=== PATIENT | male | born 1995 | race African-American/Black ===

== ENCOUNTER 2018-08-03 10:25 | Emergency (ER) | payer SELFPAY ==
[~2018-08-03] VITALS: Ht 177.8 cm; Wt 69.4 kg
--- OUTSIDE RECORDS SUMMARY | 2018-08-03 10:27 | XMS REPORT | Clinical Summary ---
Author Author [facility] Address Unknown Phone Unavailable Care Team Providers Care Fibrous Plasterer Name Role Phone Sharpless PCP Allergies No Known Allergies Medications No known medications Active Problems Not on file Social History Date Tobacco Use Types Packs/Day Years Used Never Smoker Smokeless Tobacco: Never Used Alcohol Use Drinks/Week oz/Week Comments Yes Sex Assigned at Date Recorded Not on file Industry Job Start Date Occupation Not on file Not on file Not on file Travel End Travel History Travel Start No recent travel history available. Last Filed Vital Signs Not on file Plan of Treatment Not on file Results Not on fileafter 08/02/2017
--- OUTSIDE RECORDS SUMMARY | 2018-08-03 10:27 | XMS REPORT ---
Author Author [facility] Address Unknown Phone Unavailable Care Team Providers Care Skein Dyer Name Role Phone JUDD RIDDLE Unavailable Unavailable Problems This patient has no known problems. Allergies, Adverse Reactions, Alerts This patient has no known allergies or adverse reactions. Medications This patient has no known medications. Encounters Start Date/Time End Date/Time Encounter Type Admission Type Attending Clinicians Care Facility Care Department Encounter ID 2017-06-12 17:58:00 2017-06-12 17:58:00 Emergency [facility] [id number] Results Test Description Test Time Test Comments Text Results Atomic Results Result Comments BASIC METABOLIC PANEL 2017-06-13 00:36:00 SODIUM (BEAKER) (test fmlw=490) 144 meq/L 135-148 POTASSIUM (BEAKER) (test bopw=523) 3.8 meq/L 3.6-5.5 CHLORIDE (BEAKER) (test jqib=037) 99 meq/L 98-106 CO2 (BEAKER) (test bhft=793) 32 meq/L 24-32 BLOOD UREA NITROGEN (BEAKER) (test broh=449) 17 mg/dL 10-26 CREATININE (BEAKER) (test diyw=372) 1.00 mg/dL 0.50-1.20 GLUCOSE RANDOM (BEAKER) (test nwvp=454) 96 mg/dL 70-110 CALCIUM (BEAKER) (test znzs=729) 9.4 mg/dL 8.5-10.5 EGFR (BEAKER) (test jpov=4272) 111 mL/min/1.73 sq m ESTIMATED GFR IS NOT ACCURATE CREATININE CLEARANCE IN PREDICTING GLOMERULAR FILTRATION RATE. ESTIMATED GFR IS NOT APPLICABLE FOR DIALYSIS PATIENTS. CBC W/PLT COUNT & AUTO [id number] 00:29:00* Test Item Value Reference Range Comments WHITE BLOOD CELL COUNT (BEAKER) (test rmho=162) 6.2 10e3/ L 4.0-10.0 RED BLOOD CELL COUNT (BEAKER) (test enca=048) 5.00 10e6/ L 4.20-5.80 HEMOGLOBIN (BEAKER) (test xpdl=740) 14.5 g/dL 13.0-16.8 HEMATOCRIT (BEAKER) (test timm=047) 42.5 % 40.0-50.0 MEAN CORPUSCULAR VOLUME (BEAKER) (test dcnl=196) 84.9 fL 82.0-98.0 MEAN CORPUSCULAR HEMOGLOBIN (BEAKER) (test uuiu=116) 29.0 pg 27.0-33.0 MEAN CORPUSCULAR HEMOGLOBIN CONC (BEAKER) (test vuab=418) 34.2 g/dL 32.0-36.0 RED CELL DISTRIBUTION WIDTH (BEAKER) (test auij=136) 12.5 % 10.3-14.2 PLATELET COUNT (BEAKER) (test tcxl=885) 205 10e3/ L 150-430 MEAN PLATELET VOLUME (BEAKER) (test hdxm=894) 7.0 fL 6.5-10.5 NEUTROPHILS RELATIVE PERCENT (BEAKER) (test ibze=312) 62 % LYMPHOCYTES RELATIVE PERCENT (BEAKER) (test rzim=959) 25 % MONOCYTES RELATIVE PERCENT (BEAKER) (test vmrd=450) 9 % EOSINOPHILS RELATIVE PERCENT (BEAKER) (test pulb=690) 2 % BASOPHILS RELATIVE PERCENT (BEAKER) (test vfva=204) 2 % NEUTROPHILS ABSOLUTE COUNT (BEAKER) (test tiei=294) 3.85 10e3/ L 1.80-8.00 LYMPHOCYTES ABSOLUTE COUNT (BEAKER) (test fjjg=149) 1.54 10e3/ L 1.48-4.50 MONOCYTES ABSOLUTE COUNT (BEAKER) (test zmji=915) 0.54 10e3/ L 0.00-1.30 EOSINOPHILS ABSOLUTE COUNT (BEAKER) (test ereg=637) 0.12 10e3/ L 0.00-0.50 BASOPHILS ABSOLUTE COUNT (BEAKER) (test ltoi=198) 0.12 10e3/ L 0.00-0.20 CT, [id number] 00:06:00Reason for exam:->abdominal painWhat is the patient's sedation requirement?->No SedationFINAL REPORT CT, ABDOMEN \T\ PELVIS, WITHOUT IV CONTRAST INDICATION: Flank pain, stone disease suspectedabdominal pain COMPARISON: None TECHNIQUE: CT of the abdomen and pelvis WITHOUT intravenous contrast. DOSE REDUCTION: Dose modulation, iterative reconstruction, and/or weight-based adjustment of the mA/kV was utilized to reduce the radiation dose to as low as reasonably achievable. FINDINGS:NOTE: Absence of intravenous contrast decreases sensitivity for focal lesions and vascular pathology. Lower thorax: Unremarkable Liver: No parenchymal abnormality.Gallbladder and biliary tree: No ductal dilation or ston es.Pancreas: No acute findings.Spleen: No acute findingsAdrenal Glands: No acute findings.Kidneys and ureters: No hydronephrosis or nephrolithiasis.Bladder and reproductive organs: Unremarkable. Stomach and Duodenum: No significant findings .Small and large intestine: Normal calibers. Large stool burden.Appendix: The ap pendix is not identified. No pericecal inflammatory changes are present. Major v ascular structures: Normal aortic caliber.Peritoneum and retroperitoneum: No nida e air, fluid or adenopathy. Skeleton: No acute bony abnormality.Additional f indings: None. IMPRESSION: No renal or ureteric stone is identified. The append ix is not clearly identified, however there are no inflammatory changes in its e xpected location. Signed: JR Vladimir, Hugo [facility] Verified Date/Time: 06/13/2017 00:06:13 Reading Location: [facility] C013Y CT Body Reading Room Elec tronically signed by: HUGO COLVIN on 06/13/2017 12:06 AM URINALYSIS W/ [id number] 23:50:00* Test Item Value Reference Range Comments COLOR (BEAKER) (test vyyn=610) Yellow CLARITY (BEAKER) (test meon=302) Clear SPECIFIC GRAVITY UA (BEAKER) (test zzgc=278) 1.020 1.001-1.035 PH UA (BEAKER) (test ijrz=681) 7.5 5.0-8.0 PROTEIN UA (BEAKER) (test bubh=691) Negative Negative GLUCOSE UA (BEAKER) (test lqxc=611) Negative Negative KETONES UA (BEAKER) (test lpcz=839) Negative Negative BILIRUBIN UA (BEAKER) (test bujy=383) Negative Negative BLOOD UA (BEAKER) (test rlfb=561) Negative Negative NITRITE UA (BEAKER) (test xzan=262) Negative Negative LEUKOCYTE ESTERASE UA (BEAKER) (test mipa=780) Negative Negative UROBILINOGEN UA (BEAKER) (test oveg=553) 0.2 mg/dL 0.2-1.0 BACTERIA (BEAKER) (test spfu=917) None Seen MUCUS (BEAKER) (test zupo=8913) Few RBC UA-MANUAL (BEAKER) (test cpqe=8568) <5 /HPF WBC UA-MANUAL (BEAKER) (test tnnt=1696) <5 /HPF SQUAMOUS EPITHELIAL MANUAL (BEAKER) (test irld=4044) <5 /HPF SOURCE(BEAKER) (test nily=8417)
== END 2018-08-03 11:00 | disposition left against medical advice (07) ==
LOC: FSED 10:25
DX: N34.1 Nonspecific urethritis (principal)